=== PATIENT | female | born 1950 | race Caucasian/White ===

== ENCOUNTER 2017-06-06 01:14 | Emergency (ER) | payer MEDICARE, OTHER ==
[~2017-06-06] VITALS: Ht 157.5 cm; Wt 83.0 kg
[~2017-06-06 01:14] MED LIST: ACTOS30 MG PO; AMARYL1 MG; AMARYL1 MG PO; ASPIR-TRIN325 MG PO; ASPIRIN ENTERI325 M1 PO; ASPIRIN81 MG PO; AZITHROMYCIN250 MG PO; BENADRYL25 M1 PO; BENADRYL25 M3 PO; CELEXA20 MG PO; CLOPIDOGREL75 MG PO; DERMACINRX SIL1 EACH; DIAZEPAM PO; ECOTRIN325 MG PO; EFFIENT10 MG PO; FARXIGA10 MG PO; FLEXERIL10 MG PO; HYDROCODONE-A1 UDTA4 PO; ISOSORBIDE MONO60 M1 PO; LIPITOR40 MG PO; LIPITOR80 MG PO; LISINOPRIL10 MG PO; LORTAB 10-3251 EACH PO; LORTAB 7.51 TAB PO; MELATONIN10 M1 PO; MELATONIN10 M2 PO; MELATONIN3 M4 PO; MELATONIN3 MG PO; METOPROLOL SUCC50 MG PO; METOPROLOL TART25 MG PO; MYAMBUTOL400 M1 PO; NEURONTIN600 MG PO; NITRO-DUR 0.1M0.1 MG SL; NITRODISC0.4 MG SL; NITROSTAT0.4 MG SL; PHENERGAN25 M1 PO; PLAVIX PO; PRAVASTATIN SOD10 MG PO; PRILOSEC PO; PRILOSEC20 M1 PO; PRILOSEC20 MG PO; PROZAC10 M1 PO; RIFAMPIN300 MG PO; TOPROL XL 50 MG50 MG PO; TOPROL XL PO; TUMS500 M1 PO; VICODIN ES 7.51 EAC1 PO; VITAMIN D35000 UNIT PO; XANAX1 MG PO
[2017-06-06] MEDS ORDERED: OMEPRAZOLE40 M1 PO (01:49)
[2017-06-06] MEDS ORDERED: BENADRYL25 M1 PO (01:50)
[2017-06-06] MEDS ORDERED: SYMBICORT80 (01:51)
[2017-06-06 02:50] LABS: BASOPHIL# 0.1 X10e3 (0-0.3); BASOPHIL% 0.4 % (0-2.5); EOSINOPHIL# 0.1 X10e3 (0-0.7); EOSINOPHIL% 0.6 % (0.0-7.0); HEMATOCRIT 40.2 % (35.0-45.0); HEMOGLOBIN 13.7 gm/dL (12.0-16.0); LYMPHOCYTE% 15.2 % (17.0-45.0); MEAN CELL VOLUME 95.6 FL (83-96); MEAN CORPUSCULAR HEMOGLOBIN 32.6 PG (28-34); MEAN CORPUSCULAR HGB CONC 34.1 g/dL (30-36); MEAN PLATELET VOLUME 8.8 FL (6.5-11.5); MONOCYTE# 0.9 X10e3 (0-1.0); MONOCYTE% 6.7 % (3.0-12.0); NEUTROPHIL# 9.9 X10e3 (1.5-7.1); NEUTROPHIL% 77.1 % (40-75); PLATELET COUNT 177 X10e3 (140-420); WHITE BLOOD COUNT 12.8 X10e3 (4.0-10.5)
[2017-06-06 03:07] LABS: DIFF IND NO
[2017-06-06 03:20] LABS: ALBUMIN SERUM 4.1 g/dL (3.5-5.0); BILIRUBIN, DIRECT 0.1 mg/dL (0.0-0.2); BILIRUBIN,INDIRECT 0.5 mg/dL (0.0-0.9); BILIRUBIN,TOTAL 0.6 mg/dL (0.2-2.0); CALCIUM SERUM 9.4 mg/dL (8.4-10.2); GLOM FILT RATE Estimated 57.9 mL/min (>60); POTASSIUM 4.2 mmol/L (3.5-5.1); PROTEIN TOTAL SERUM 7.3 g/dL (6.0-8.3)
== END 2017-06-06 05:35 | disposition home or self-care (01) ==
LOC: CED 01:14
PROVIDERS: Physician Assistant
DX: K64.4 Residual hemorrhoidal skin tags (principal); K56.41 Fecal impaction; M54.9 Dorsalgia, unspecified; R11.2 Nausea with vomiting, unspecified; I10 Essential (primary) hypertension; Z90.49 Acquired absence of other specified parts of digestive tract; Z98.51 Tubal ligation status; Z79.82 Long term (current) use of aspirin; Z79.899 Other long term (current) drug therapy; Z88.0 Allergy status to penicillin; Z88.5 Allergy status to narcotic agent; Z88.8 Allergy status to other drugs, medicaments and biological substances
CPT/HCPCS: 36415; 80048; 80076; 85025; 96374; 96375; 96376; 99283; J1170; J2405

== ENCOUNTER → 2017-06-15 | Outpatient (CLI) | payer MEDICARE, OTHER ==
[~2017-06-15] MED LIST changes: +OMEPRAZOLE40 M1 PO; +SYMBICORT80
--- NOTE | ~2017-06-15 | MR187 ---
[facility] A Service of [facility] & [facility] RADIOLOGY TEXT RESULTS PATIENT: VIRAL CARRILLO LOCATION: [facility] : 48 UNIT #: [id number] AGE: [address]: RG BAGLEY APRN SEX: F ORDER DR: [id number] [address] [address] [id number] O MR#: [id number] Acc #: [id number] NAME: VIARL CARRILLO : 1950 SEX: F STUDY DATE/TIME: 06/15/2017 13:47 UNIT: [facility] ROOM: STUDY DESCRIPTION: MR Wrist Wo Contrast Lt Attending Physician: Rg Bagley Aprn Referring Physician: Rg Bagley Aprn Ordering Physician: Rg Bagley Aprn Primary Care Physician: Rain AlejandroPPk MRI CENTER REPORT This report is preliminary unless electronic signature is present. EXAM MRI of the left wrist without contrast HISTORY 66-year-old female with history of the de Quervain's tenosynovitis, radial sided wrist pain worsening. Evaluate for flexor carpi radialis tendon tear. FINDINGS Multiplanar, multiecho imaging was performed of the left wrist utilizing a high field magnet and dedicated protocol. Moderately advanced arthritic changes at the first CMC joint with marrow edema proximal aspect of the first metacarpal, subchondral cystic changes at the metacarpal base and also within the trapezium. Mild radial subluxation of the first metacarpal. Small amount of edema and/or cystic changes noted along the ulnar side of the capitate may reflect chondromalacia or benign cyst. Otherwise normal carpal alignment. Intrinsic and extrinsic wrist ligaments appear intact. Extensor tendons in compartments 1-6 appear intact. Flexor tendons appear normal. In particular, the flexor carpi radialis appears intact. Normal-appearing carpal tunnel and Guyon's canal. Median and ulnar nerves appear normal. IMPRESSION 1. Moderately advanced arthritic changes of the first CMC joint with marrow edema and cystic change bordering the first CMC joint compatible with some active inflammation. 2. No evidence of tendinopathy and the flexor carpi radialis tendon appears intact. 3. Probable focal chondromalacia ulnar side of the capitate. 4. Not mentioned above, there is a thin, multiloculated cystic lesion along the volar radial aspect of the wrist at the radiocarpal joint [facility] A Service of [facility] & [facility] RADIOLOGY TEXT RESULTS PATIENT: VIRAL CARRILLO LOCATION: [facility] : 48 UNIT #: [id number] AGE: [address]: RG BAGLEY APRN SEX: F ORDER DR: measuring about 9 mm in length and no more than 2 mm in thickness. This may represent a thin, ganglion cyst. Dictated by... Serena Martínez M.D. THIS IS AN ELECTRONICALLY VERIFIED REPORT Serena Martínez M.D. at 06/19/2017 10:14 AM HILL/shanta TD: 06/18/2017 14:06 JOB #: [id number] MRI CENTER REPORT Page 1 of 1
== END | disposition home or self-care (01) ==
LOC: SMRI 06-08 13:45
DX: M65.4 Radial styloid tenosynovitis [de Quervain] (principal); R60.0 Localized edema; M25.832 Other specified joint disorders, left wrist
CPT/HCPCS: 73221

== ENCOUNTER 2017-07-26 06:54 | Emergency (ER) | payer MEDICARE, OTHER ==
[~2017-07-26] VITALS: Ht 157.5 cm; Wt 83.9 kg
--- NOTE | ~2017-07-26 | EKG ---
PATIENT: VIRAL CARRILLO UNIT #: [id number] Ventricular Rate: 59 BPM Atrial Rate: 59 BPM P-R Interval: 132 ms QRS Duration: 72 ms Q-T Interval: 424 ms QTC Calculation(Bezet): 419 ms P Orient: 39 degrees Calculated R Orient: 43 degrees Calculated T Orient: 35 degrees Diagnosis Line: Poor data quality, interpretation may be Diagnosis Line: adversely affected Diagnosis Line: Sinus bradycardia Diagnosis Line: Possible Left atrial enlargement Diagnosis Line: Borderline ECG Diagnosis Line: When compared with ECG of 27-JUL-2016 18:53, Diagnosis Line: No significant change was found Diagnosis Line: Confirmed by ANNA KITCHEN MD ([id number]) on Diagnosis Line: 07/27/2017 10:51:57 AM INTERPRETING MD: IMTIAZ MACIEL
--- NOTE | ~2017-07-26 | DS ---
Unit #: [id number] #: [id number] Patient: VIRAL CARRILLO [id number] [address] [place], [place] [address] [id number] MR#: [id number] NAME: VIRAL CARRILLO ROOM: Age: 66 Sex: F Admission Date: 07/26/2017 : 1950 Discharge Date: 07/26/2017 Attending Physician: Luis Felipe Britton M.D. Primary Care Physician: Melvi Reece A.P.R.N. DISCHARGE SUMMARY SHORT STAY SUMMARY REASON FOR CONSULTATION Chest pain. HISTORY OF PRESENT ILLNESS The patient is a 66-year-old female, who is office patient of Dr. Mooney. She has a history of coronary artery disease and stenting in the past. The patient had a cardiac cath here in 12/2015 that showed organic heart disease, patent stents to the proximal and mid LAD, second diagonal was caught and sent mcc, which is an old finding, and a patent stent to the mid RCA with a 99% stenosis of the posterior left ventricular branch of the right coronary artery. The patient was advised to consider angioplasty and stenting of the PLV branch of the right coronary artery. The patient had two Promus drug-eluting stents placed to the right coronary, and was placed in the distal RCA extending into the PLV branch. There was no residual stenosis, but the PDA branch was caught and sent mcc. Multiple attempts were made to enter the PDA branch through the stent struts, but were unsuccessful. The first PDA branch of the right coronary showed 95% stenosis caused by the stent mcc. It was recommended that if she continued to have angina, later attempt could be made. The patient then had another coronary angiography in 03/2016 three months later. CORONARY ANATOMY Revealed distal right coronary artery extending into the PDA and that stents remained widely patent. At that time, there was questionable narrowing of the origin of the first PDA branch and attempts to enter the artery were unsuccessful. The origin of the PDA on repeat coronary angiography was only about 50% to 60% and was considered non-hemodynamically significant as there was OREN-3 flow. Continued medical therapy for noncardiac causes of chest pain were recommended. The patient comes to the hospital today with a sharp shooting pain in the substernal chest. She does have some pressure in the right chest. Few weeks ago, she had an upper respiratory sinus infection and had been coughing. While I am seeing the patient, she is having intermittent sharp shooting pains. The patient has risk factors such as hypertension, hyperlipidemia, diabetes, and COPD. The pain is not brought on by exertion. There are no ameliorating symptoms. Last coronary anatomy, patent stent to the proximal LAD, ostial diagonal, second diagonal sent mcc, mid LAD 50% to 60%, patent mid RCA stent, distal PDA and 50% to 60% stent mcc with OREN-3 flow. OM of the circumflex 30%. Left main was normal. Unit #: [id number] #: [id number] Patient: VIRAL CARRILLO PAST MEDICAL HISTORY/SURGICAL HISTORY Significant for coronary artery disease, hypertension, hyperlipidemia, COPD, obstructive sleep apnea, diabetes, lupus, PTSD, Beebe's esophagus, GERD, appendectomy, fibromyalgia, depression, peptic ulcer disease, Green's palsy, hysterectomy, cholecystectomy, elbow surgery, right rotator cuff tear repair, tubal ligation, benign left breast biopsy, left eye surgery, right thumb surgery, cystectomy. ALLERGIES Oxycodone from OxyContin, nonsteroidal anti-inflammatory drugs, penicillin, statin, coags reducing inhibitor, morphine. SOCIAL HISTORY The patient lives at home with her family. She is an ex-smoker of 35 years. No alcohol or drug abuse. FAMILY HISTORY Significant for a mother who had a stroke and father of an [place] in his 70s. DIAGNOSTIC DATA IMAGING STUDIES: EKG shows sinus rhythm with T-wave abnormalities in the septal and anterior leads. No ST-elevation or depression is noted. Chest x-ray, unremarkable. LABORATORY RESULTS: White blood cell count 11.9, hemoglobin 13.9, hematocrit 39.1, and platelet count 195. Sodium 138, potassium 4.0, chloride 105, CO2 of 27, BUN 18, creatinine 0.8, glucose 197. Troponin negative x2. REVIEW OF SYSTEMS Complains of sharp stabbing pain in the substernal chest. No fever, chills, cough, nausea, vomiting, diarrhea, dizziness, lightheadedness, headache, or changes in visual field. All other review of systems is negative. PHYSICAL EXAMINATION GENERAL: The patient is awake and alert. No apparent distress. Color is pink. SKIN: Warm and dry. VITAL SIGNS: Afebrile, heart rate 57, blood pressure 140/79. HEENT: Normal carotid upstrokes. No auscultated bruit. Negative JVD, lying supine. Negative hepatojugular reflux. CHEST: Respirations are regular, unlabored at rest. Bilateral breath sounds have good air entry throughout all lung tadeo. No crackles, rubs, or wheezes are heard. HEART: S1 and S2. Regular rate and rhythm. No murmur, rubs, or gallops. ABDOMEN: Obese, soft, nontender, and nondistended. Positive bowel sounds in all 4 quadrants. No ascites noted. EXTREMITIES: Bilateral lower extremities have no pretibial pitting edema. DP/PT pulses are 2+. Cap refill less than 3 seconds. NEUROLOGIC: No focal motor or sensory deficits. Moves all extremities without difficulty. IMPRESSION 1. Atypical chest pain. 2. History of coronary artery disease and stenting with medical therapy in 03/2016. Unit #: [id number] #: [id number] Patient: VIRAL CARRILLO 3. Hypertension. 4. Chronic obstructive pulmonary disease. 5. Diabetes. 6. Hyperlipidemia. 7. Ex-smoker. PLAN Cardiac enzymes are all normal. EKG is unremarkable. We discussed with the patient different options such as staying and having a cardiac cath based on earlier this year's office visits, recommendations or following up next week and being scheduled as an outpatient. Patient would like to go home to follow up with Dr. Mooney on 08/02/2017, next at 1:15 p.m. She is to continue her same medications as described above. Dictated by... GLO Khan/maribel TD: 07/30/2017 11:20 JOB #: [id number] CC: Joanne Gomes M.D. DISCHARGE SUMMARY Page 1 of 1 X X DISCHARGE SUMMARY
--- NOTE | ~2017-07-26 | CR72 ---
[facility] A Service of [facility] & [facility] RADIOLOGY TEXT RESULTS PATIENT: VIRAL CARRILLO LOCATION: [facility] : 48 UNIT #: [id number] AGE: [address]: Luis Felipe Britton MD SEX: F ORDER DR: [id number] [facility] [address] [place], [place] [address] [id number] E MR#: [id number] #: [id number] NAME: VIRAL CARRILLO : 1950 SEX: F STUDY DATE/TIME: 07/26/2017 7:19 UNIT: [facility] ROOM: STUDY DESCRIPTION: CR Chest Single View Portable Attending Physician: Luis Felipe Britton M.D. Ordering Physician: Luis Felipe Britton M.D. Primary Care Physician: Rain AlejandroPPk MEDICAL IMAGING REPORT This report is preliminary unless electronic signature is present EXAM Portable chest, 07/26. INDICATIONS Chest pain and shortness of air starting last night. History of myocardial infarction. COMPARISON 03/30/16. FINDINGS A portable view of the chest was obtained. The heart size and vascularity are normal and lungs are clear. The bones are unremarkable. IMPRESSION No active disease. Dictated by... Tejinder Mcdonnell M.D. THIS IS AN ELECTRONICALLY VERIFIED REPORT Tejinder Mcdonnell M.D. at 07/26/2017 3:58 PM VIC/hair TD: 07/26/2017 09:56 JOB #: [id number] MEDICAL IMAGING REPORT Page 1 of 1 COPY
[2017-07-26 07:43] LABS: BASOPHIL# 0.1 X10e3 (0-0.3); BASOPHIL% 0.6 % (0-2.5); EOSINOPHIL# 0.2 X10e3 (0-0.7); EOSINOPHIL% 1.7 % (0.0-7.0); HEMATOCRIT 39.1 % (35.0-45.0); HEMOGLOBIN 13.9 gm/dL (12.0-16.0); LYMPHOCYTE# 3.2 X10e3 (1.0-3.5); LYMPHOCYTE% 26.9 % (17.0-45.0); MEAN CELL VOLUME 96.8 FL (83-96); MEAN CORPUSCULAR HEMOGLOBIN 34.4 PG (28-34); MEAN CORPUSCULAR HGB CONC 35.5 g/dL (30-36); MEAN PLATELET VOLUME 8.4 FL (6.5-11.5); MONOCYTE% 8.1 % (3.0-12.0); NEUTROPHIL# 7.5 X10e3 (1.5-7.1); NEUTROPHIL% 62.7 % (40-75); PLATELET COUNT 195 X10e3 (140-420); RED BLOOD COUNT 4.04 X10e (3.90-5.30); RED CELL DISTRIBUTION WIDTH 13.4 % (11.0-15.5); WHITE BLOOD COUNT 11.9 X10e3 (4.0-10.5)
[2017-07-26 07:44] LABS: POC - CKMB 1.1 ng/mL (0.0-7.9); POC - TROPONIN <0.05 ng/mL (<=0.05)
[2017-07-26 07:54] LABS: DIFF IND NO
[2017-07-26 08:04] LABS: ALBUMIN SERUM 4.1 g/dL (3.5-5.0); BILIRUBIN, DIRECT 0.1 mg/dL (0.0-0.2); BILIRUBIN,INDIRECT 0.3 mg/dL (0.0-0.9); BILIRUBIN,TOTAL 0.4 mg/dL (0.2-2.0); BUN/CREATININE RATIO 22.5; CALCIUM SERUM 9.1 mg/dL (8.4-10.2); CREATININE SERUM 0.8 mg/dL (0.6-1.4); GLOM FILT RATE Estimated 75.8 mL/min (>60); PROTEIN TOTAL SERUM 7.1 g/dL (6.0-8.3)
[2017-07-26 08:07] LABS: PARTIAL THROMBOPLASTIN TIME 21.6 SECONDS (23.5-31.3); PROTHROMBIN TIME (PATIENT) 10.7 SECONDS (10.0-11.7)
[2017-07-26 09:16] LABS: POC - CKMB <1.0 ng/mL (0.0-7.9); POC - TROPONIN <0.05 ng/mL (<=0.05)
== END 2017-07-26 11:47 | disposition home or self-care (01) ==
LOC: CED 06:54
PROVIDERS: Emergency Medicine
DX: R07.81 Pleurodynia (principal); M54.9 Dorsalgia, unspecified; I10 Essential (primary) hypertension; I25.10 Atherosclerotic heart disease of native coronary artery without angina pectoris; E11.9 Type 2 diabetes mellitus without complications; Z90.49 Acquired absence of other specified parts of digestive tract; Z79.82 Long term (current) use of aspirin; Z79.899 Other long term (current) drug therapy; Z88.0 Allergy status to penicillin; Z88.5 Allergy status to narcotic agent; Z88.8 Allergy status to other drugs, medicaments and biological substances
CPT/HCPCS: 36415; 71010; 80048; 80076; 82553; 83880; 84484; 85025; 85379; 85610; 85730; 93005; 99285